=== PATIENT | male | born 1970 | race Caucasian/White ===

== ENCOUNTER 2020-09-29 07:21 | Day surgery (SDC) | payer OTHER ==
[2020-09-28 14:41] VITALS: BMI 27.3
[2020-09-29] MEDS ORDERED: LIDOCAINE HCL/PF 2% SDV 5ML VIAL ONE (07:56)
[2020-09-29] MEDS ORDERED: PROPOFOL 20 ML ONE ×3 (07:56)
[2020-09-29 10:18] VITALS: BP 110/65; PULSE 57; TEMP 97.8
== END 2020-09-29 10:19 | disposition home or self-care (01) ==
LOC: FASU-ENDO 07:21
PROVIDERS: ATTEND Internal Medicine Gastroenterology
PROC: 0DBP8ZX Excision of Rectum, Via Natural or Artificial Opening Endoscopic, Diagnostic (ICD-10-PCS; principal; 2020-09-29 09:17)
DX: K51.20 Ulcerative (chronic) proctitis without complications (principal); K52.9 Noninfective gastroenteritis and colitis, unspecified; K62.89 Other specified diseases of anus and rectum; K62.5 Hemorrhage of anus and rectum
CPT/HCPCS: 88305-TC